=== PATIENT | female | born 1965 | race Caucasian/White ===

== ENCOUNTER 2016-05-29 08:36 | Emergency (ER) | payer OTHER ==
[~2016-05-29 08:36] MED LIST: ASPIR 8181 M1 PO; ASPIR 8181 MG PO; CARDIZEM LA180 M1 PO; GLUCOPHAGE XR500 M1 PO; GLUCOPHAGE XR500 MG PO; GLUCOSAMINE &1 EAC1 PO; GLUCOSAMINE1000 M1; MONTELUKAST SOD10 M2 PO; MULTIVITAMINS1 EAC6 PO; NECON PO; NEXIUM40 M1 PO; NORCO 5-325 TA1 EACH PO; PIRMELLA PO; QNASL8.7 G1 NS; SPIRONOLACTONE50 M1 PO; SYNTHROID88 MC1 PO; VITAMIN D2000 UNI1 PO; VITAMIN D31000 UNI3 PO; ZYRTEC-D TABLE1 EAC1 PO; ZYRTEC-D TABLE1 EACH PO
[2016-05-29 09:29] LABS: URINE BILIRUBIN NEGATIVE (NEG); URINE BLOOD MODERATE (NEG); URINE GLUCOSE (UA) NEGATIVE (NEG); URINE KETONE NEGATIVE (NEG); URINE LEUKOCYTE ESTERASE POSITIVE (NEG); URINE NITRITE NEGATIVE (NEG); URINE PH 6.5 (5.0-8.0); URINE PROTEIN NEGATIVE (NEG)
[2016-05-29 09:39] LABS: URINE APPEARANCE CLEAR; URINE COLOR PALE YELLOW
[2016-05-29 09:40] LABS: URINE BACTERIA 1+; URINE RBC RARE /[HPF] (0-5)
[2016-05-29] MEDS ORDERED: BACTRIM DS TAB1 EAC2 PO (09:48)
== END 2016-05-29 09:59 ==
LOC: EDMED 08:36
PROVIDERS: Emergency Medicine
DX: N39.0 Urinary tract infection, site not specified (principal); E11.9 Type 2 diabetes mellitus without complications; Z79.899 Other long term (current) drug therapy